=== PATIENT | female | born 1990 | race Caucasian/White ===

== ENCOUNTER 2021-02-18 00:53 | Day surgery (SDC) | payer BC, SELFPAY ==
[2021-02-03 11:53] VITALS: BMI 27.7
[2021-02-18 09:53] VITALS: BP 137/96; PULSE 102; RESP 16; TEMP 36.1; O2SAT 100
[2021-02-18] MEDS: LACTATED RINGERS 1,000 ML 150 ML IV CONT (10:10)
--- NOTE | 2021-02-18 10:19 | PM.HPGS ---
History of Present Illness History of Present Illness Consent: Risks, benefits, and alternatives have been discussed and questions answered. Patient agrees to proceed with procedure. Chief complaint: blood in stool Narrative: Chadd Candelaria is a 30 year old female Who was referred for investigation of rectal bleeding. A few times a month she will pass blood in her stools. It is generally somewhat bright red. More recently it is accompanied by clots as well. there is no family history of inflammatory bowel disease or colorectal cancer Review of Systems Review of Systems: All systems reviewed & are unremarkable except as noted in HPI and below PMFSH Past Medical History Medical History GERD (gastroesophageal reflux disease) Social History Social History Smoking status: Never smoker Alcohol intake: current Substance use: never Substance use type: does not use Living arrangements: with family Spiritual care concerns: No Meds Home Medications and Allergies Home Medications Medication Instructions Recorded Confirmed Type omeprazole magnesium [Prilosec OTC] 20 mg PO DAILY 02/03/21 02/18/21 History Allergies Allergy/AdvReac Type Severity Reaction Status Date / Time latex Allergy Intermediate Blister Verified 02/18/21 09:50 Vital Signs Vital Signs - 24 hr 02/18/21 09:53 Temperature 36.1 C L Pulse Rate 102 H Respiratory Rate 16 Blood Pressure 137/96 H Pulse Oximetry 100 Exam Const: General: alert Orientation/consciousness: patient oriented x3 Resp: Auscultation: clear to auscultation bilaterally Cardio: Rhythm: regular rhythm GI: GI Palp: Yes Soft to palpation and No Tenderness to palpation present (GI) Neuro: General: patient oriented x3 Assessment and Plan Assessment and plan (1) Blood in stool: Code(s): K92.1 - Melena Status: Acute Assessment and Plan: Colonoscopy with possible biopsy or polypectomy or cautery or injection of substances.
--- NOTE | 2021-02-18 10:24 | WPDANESEPPF ---
Anes - Initial Pre Proc Eval Procedure: Operation Date: 02/18/21 11:00 Proposed Procedures p Colonoscopy - Harman Foley MD Date/Time: 02/18/21 10:24 Surgeon: Harman Foley MD Pre Op Diagnosis: blood in stool Patient Data Age: 30 Gender: F Height: 1.68 m Weight: 75 kg Last Vital Signs Temp 96.9 F L 02/18/21 09:53 Pulse 102 H 02/18/21 09:53 Resp 16 02/18/21 09:53 BP 137/96 H 02/18/21 09:53 Pulse Ox 100 02/18/21 09:53 Allergies Allergy/AdvReac Type Severity Reaction Status Date / Time latex Allergy Intermediate Blister Verified 02/18/21 09:50 Home Medications Medication Instructions Recorded Confirmed Type omeprazole magnesium [Prilosec OTC] 20 mg PO DAILY 02/03/21 02/18/21 History Patient hx anesthesia problems: none Family hx anesthesia problems: none [facility] Past Medical History Medical History GERD (gastroesophageal reflux disease) Social History Social History Smoking status: Never smoker Alcohol intake: current Substance use: never Substance use type: does not use Living arrangements: with family Spiritual care concerns: No Anes - Eval Final PreProcedure Day of Procedure 02/18/21 10:24 Patient weight: overweight Heart: regular rate and rhythm Lungs: clear to auscultation Airway: Mallampati scale class II Neurological: alert and oriented Last oral intake: >/= 8 hours ASA classification: II Emergent: no Anesthetic plan: proceed Anesthesia type and monitoring: general GIVS and standard monitoring Informed Consent: The patient's anesthetic plan and its attendant risks and benefits were discussed with the patient/family/POA. Questions were solicited and answers provided to the satisfaction of the patient/family/POA.
[2021-02-18] MEDS: SIMETHICONE ORAL SUSPENSION 20 MG/0.3 ML 30 ML BOTTLE 0.6 ML IRRIGATION (11:07)
[2021-02-18 11:14] VITALS: BP 137/96; PULSE 89; RESP 22; O2SAT 100
[2021-02-18 11:24] VITALS: BP 100/78; PULSE 74; RESP 22; O2SAT 100
[2021-02-18 11:34] VITALS: BP 100/74; PULSE 73; RESP 22; O2SAT 100
== END 2021-02-18 11:50 | disposition home or self-care (01) ==
PROVIDERS: PCP Physician Assistant; Visit Provider Internal Medicine Gastroenterology
PROC: 0DJD8ZZ Inspection of Lower Intestinal Tract, Via Natural or Artificial Opening Endoscopic (ICD-10-PCS; CPT 45378; principal; 2021-02-18 11:00)
DX: K62.5 Hemorrhage of anus and rectum (principal); K64.8 Other hemorrhoids; K21.9 Gastro-esophageal reflux disease without esophagitis
CPT/HCPCS: 45378; J2704; J7120